=== PATIENT | male | born 1995 | race Caucasian/White ===

== ENCOUNTER 2021-01-17 14:36 | Emergency (ER) | payer MEDICAID ==
[~2021-01-17] VITALS: Ht 185.4 cm; Wt 92.0 kg
[2021-01-17] MEDS ORDERED: IBUPROFEN 600MG TABLET PO ONE (15:30)
[2021-01-17] MEDS ORDERED: AMOX-494 MT (15:49)
[2021-01-17] MEDS ORDERED: IBUP-2029 MT (15:49)
[2021-01-17 16:26] VITALS: BP 115/71
== END 2021-01-17 16:26 | disposition home or self-care (01) ==
LOC: ER 14:36
DX: J02.9 Acute pharyngitis, unspecified (principal); M54.9 Dorsalgia, unspecified
CPT/HCPCS: 99282

== ENCOUNTER 2021-09-08 14:09 | Emergency (ER) | payer MEDICAID, OTHER ==
[~2021-09-08] VITALS: Ht 185.4 cm; Wt 93.0 kg
[~2021-09-08 14:09] MED LIST: AMOX-494 MT; IBUP-2029 MT
[2021-09-08 14:13] VITALS: BP 141/95
[2021-09-08] MEDS ORDERED: CLOT15CR27 TP (14:30)
[2021-09-08] MEDS ORDERED: AMOXICILLIN/POTASSIUM CLAVULANATE 875/125MG TAB PO ONE (14:30)
[2021-09-08] MEDS ORDERED: AMOX-424 MT (14:30)
[2021-09-08] MEDS ORDERED: IBUP-2029 MT (14:30)
[2021-09-08] MEDS ORDERED: HYDROCODONE/ACETAMINOPHEN 5/325MG TABLET PO ONE (14:30)
[2021-09-08] MEDS ORDERED: T3 PO (14:30)
== END 2021-09-08 14:48 | disposition home or self-care (01) ==
LOC: ER 14:09
DX: K04.7 Periapical abscess without sinus (principal); B35.6 Tinea cruris
CPT/HCPCS: 99283

== ENCOUNTER 2021-10-21 05:43 | Emergency (ER) | payer OTHER ==
[~2021-10-21] VITALS: Ht 193 cm; Wt 97.0 kg
[~2021-10-21 05:43] MED LIST changes: +AMOX-424 MT; +CLOT15CR27 TP; +T3 PO
[2021-10-21 05:53] VITALS: BP 150/92
[2021-10-21] MEDS ORDERED: T3 PO (06:29)
[2021-10-21] MEDS ORDERED: ACETAMINOPHEN WITH CODEINE 300/30MG TABLET PO ONE (06:30)
== END 2021-10-21 07:21 | disposition home or self-care (01) ==
LOC: ER 05:43
DX: K08.89 Other specified disorders of teeth and supporting structures (principal); Z79.899 Other long term (current) drug therapy
CPT/HCPCS: 99282

== ENCOUNTER 2022-02-11 16:01 | Emergency (ER) | payer OTHER ==
[~2022-02-11] VITALS: Ht 172.7 cm; Wt 89.0 kg
[2022-02-11 16:21] VITALS: BP 137/84
[2022-02-11] MEDS ORDERED: PROT40 MT (17:20)
[2022-02-11] MEDS ORDERED: METO-293 MT (17:20)
[2022-02-11] MEDS ORDERED: METOCLOPRAMIDE HCL 5MG TABLET PO ONE (17:30)
[2022-02-11] MEDS ORDERED: PANTOPRAZOLE 40MG DR TABLET PO ONE (17:30)
== END 2022-02-11 17:45 | disposition home or self-care (01) ==
LOC: ER 16:01
DX: F12.10 Cannabis abuse, uncomplicated (principal); R11.2 Nausea with vomiting, unspecified; G47.00 Insomnia, unspecified; R03.0 Elevated blood-pressure reading, without diagnosis of hypertension
CPT/HCPCS: 99283; J8597

== ENCOUNTER 2022-02-15 14:53 | Emergency (ER) | payer OTHER ==
[~2022-02-15] VITALS: Ht 185.4 cm; Wt 100.0 kg
[~2022-02-15 14:53] MED LIST changes: +METO-293 MT; +PROT40 MT
[2022-02-15 15:04] VITALS: BP 125/79
[2022-02-15] MEDS ORDERED: DIPHENHYDRAMINE 50MG CAPSULE PO ONE (16:45)
[2022-02-15] MEDS ORDERED: DEXAMETHASONE 10 MG/ML VIAL IM ONE (16:45)
[2022-02-15] MEDS ORDERED: FAMOTIDINE 20MG TABLET PO ONE (16:45)
[2022-02-15] MEDS ORDERED: EPINEPHRINE 1:1000 1 MG/ML AMP IM ONE (16:45)
[2022-02-15] MEDS ORDERED: EPIN0.3A3 IM (17:50)
== END 2022-02-16 03:47 | disposition home or self-care (01) ==
LOC: ER 14:53
DX: R21 Rash and other nonspecific skin eruption (principal); L50.9 Urticaria, unspecified; T78.40XA Allergy, unspecified, initial encounter; X58.XXXA Exposure to other specified factors, initial encounter
CPT/HCPCS: 96372; 99284; J1100; J3490; Q0163